=== PATIENT | female | born 1950 | race Caucasian/White ===

== ENCOUNTER 2019-07-05 08:33 | Outpatient (CLI) | payer MEDICARE ==
--- NOTE | 2019-07-05 09:41 | CT ---
EXAM: CT Pulmonary Lung Scan PROVIDED CLINICAL HISTORY: Nicotine dependence COMPARISON: None FINDINGS: There are tiny less than 4 mm scattered nodular densities within the lungs bilaterally majority of wh ich do appear pleural based. A few scattered calcified granuloma are seen within the medial aspect right upper lobe, lingula, and in the left lower lobe. No pleural effusion is seen. Minimal vascular calcifications are seen in the coronary arteries and involving the thoracic aorta. T here is trace pericardial effusion versus pericardial thickening. Lack of intravenous contrast limits sensitivity for evaluation of the mediastinal structures and vasc ulature. However, no definite enlarged lymph nodes are appreciated. The upper abdomen demonstrates a grossly normal nonenhanced CT appearance. Degenerative changes are seen in the spine with a prominent bridging osteophyte anteriorly at T10-11 level. IMPRESSION: Lung RADS category 2-scattered less than 4 mm nodules within the lungs bilaterally majority of which are pleural-based. Continued annual screening with low-dose CT scan thorax in 12 months is recommended.
== END 2019-07-05 08:34 | disposition home or self-care (01) ==
LOC: CT 08:33
PROVIDERS: ATTEND Family Medicine
DX: F17.210 Nicotine dependence, cigarettes, uncomplicated (principal); R91.8 Other nonspecific abnormal finding of lung field
CPT/HCPCS: G0297

== ENCOUNTER 2019-08-18 09:39 | Outpatient (CLI) | payer MEDICARE, OTHER ==
--- NOTE | 2019-08-18 09:52 | RAD ---
2 view chest: [08/18/2019] Comparison:None available HISTORY: Bladder cancer FINDINGS: Heart and mediastinal contours are grossly unremarkable. There is mild diffuse increased li near interstitial density. Lungs are mildly hyperinflated. Question a history of COPD. No pneumothorax or pleural fluid. No focal consolidation or alveolar edema. IMPRESSION: No acute findings.
--- NOTE | 2019-08-18 11:06 | ULT ---
BILATERAL RENAL ULTRASOUND: HISTORY: Malignant neoplasm of bladder. FINDINGS: The right kidney measures 9.5 cm in length and the left kidney measures 9.2 cm in length. No hydronep hrosis or mass is seen on either side. A dilated right renal pelvis is noted. The patient's bladder was removed in 2010 due to cancer. IMPRESSION: No evidence of renal mass. POS: [facility]
== END 2019-08-18 09:40 | disposition home or self-care (01) ==
LOC: BICULT 09:39
PROVIDERS: ATTEND Urology
DX: C67.9 Malignant neoplasm of bladder, unspecified (principal)
CPT/HCPCS: 36415; 71046; 76770; 80053

== ENCOUNTER 2019-10-17 09:49 | Outpatient (CLI) | payer MEDICARE ==
--- NOTE | 2019-10-17 11:06 | RAD ---
2 views right shoulder: 10/17/2019 COMPARISON: None HISTORY: Acute shoulder pain FINDINGS: There is degenerative change involving the right acromioclavicular joint with interspace na rrowing as well as superior and inferior osteophyte formation. There is moderate glenohumeral joint degenerative change. No acute fracture. Glenohumeral relationship is not optimally assessed as no sca pular Y-view or axillary view is provided. IMPRESSION: Degenerative change with no acute fracture noted.
== END 2019-10-17 09:50 | disposition home or self-care (01) ==
LOC: BICRAD 09:49
PROVIDERS: ATTEND Family Medicine
DX: M25.511 Pain in right shoulder (principal); M19.011 Primary osteoarthritis, right shoulder

== ENCOUNTER 2020-08-01 15:45 | Outpatient (CLI) | payer MEDICARE ==
--- NOTE | 2020-08-01 16:36 | CT ---
CT THORAX NONCONTRAST: (LOW DOSE LUNG CANCER SCREENING EXAM) DATE: 08/01/2020 HISTORY: 69-year-old female with history of smoking. Z12.2. Z00.00. COMPARISON: 07/05/2019. FINDINGS: As previously described, there are tiny, noncalcified, multiple pulmonary nodules in the peripheral a spects of the bilateral upper, mid, and lower lung zones, all less than 4 mm in size, mostly 2 mm. Tr achea and bronchi are patent and clear. No pleural effusion or pneumothorax. No thoracic aortic aneur ysm. No cardiomegaly. No significant mediastinal lymphadenopathy. No major interval change. No bullae . IMPRESSION: 1. Lung-RADS 2 (benign appearance, less than 1% chance of malignancy). 2. Recommend continued annual low dose screening CT's. RADHA Serna POS: [facility]
== END 2020-08-01 15:46 | disposition home or self-care (01) ==
LOC: BICCT 15:45
PROVIDERS: ATTEND Family Medicine
DX: Z12.2 Encounter for screening for malignant neoplasm of respiratory organs (principal); F17.210 Nicotine dependence, cigarettes, uncomplicated
CPT/HCPCS: G0297

== ENCOUNTER 2021-02-20 09:18 | Outpatient (CLI) | payer MEDICARE | END 2021-02-20 09:19 | disposition home or self-care (01) | LOC: BICRAD 09:18 | PROVIDERS: ATTEND Family Medicine | DX: M25.511 Pain in right shoulder (principal); M25.512 Pain in left shoulder; M19.011 Primary osteoarthritis, right shoulder; M19.012 Primary osteoarthritis, left shoulder ==

== ENCOUNTER 2022-05-29 15:29 | Outpatient (CLI) | payer MEDICARE | END 2022-05-29 15:30 | disposition home or self-care (01) | LOC: SCSRAD 15:29 | PROVIDERS: ATTEND Family Medicine | DX: R06.02 Shortness of breath (principal) | CPT/HCPCS: 36415; 71046; 80053; 82550; 84443 ==

== ENCOUNTER 2022-07-21 14:14 | Outpatient (CLI) | payer MEDICARE ==
[2022-07-21 16:43] LABS: #Basophils 0.1 10x3/uL (0.0-0.2); #Eosinphils 0.3 10x3/uL (0.0-0.5); #Monocytes 0.8 10x3/uL (0.0-1.1); #Neutrophils 6.1 10x3/uL (1.5-8.4); %Eosinophils 2.7 % (0.0-6.0); %Lymphocytes 31.2 % (18.0-47.0); %Monocytes 7.2 % (0.0-10.0); %Neutrophils 57.6 % (40.0-75.0); Hemoglobin 11.3 g/dL (12.0-15.5); Mean Corpuscular HGB CONC 30.6 g/dL (32.0-36.0); Mean Corpuscular Volume 62.1 fl (81.6-98.3); Mean Platelet Volume 10.3 fl (7.4-10.4); Platelet Count 386 10x3/uL (150-450); RBC Distribution Width 18.5 % (11.5-14.5); Red Blood Cell (RBC) Count 5.94 10x6/uL (3.90-5.03); White Blood Cell (WBC) Count 10.5 10x3/uL (3.5-10.5)
[2022-07-21 17:00] LABS: Anion Gap 14 mmol/L (10-20); BUN (Urea Nitrogen) 17 mg/dL (9.8-20.1); Calc. Creatinine Clearance 0 mL/min (70-130); Calcium 8.9 mg/dL (7.8-10.44); Carbon Dioxide 19 mmol/L (23-31); Chloride 110 mmol/L (98-107); Estimated GFR 58; Glucose 89 mg/dL (80-115); Potassium 4.3 mmol/L (3.5-5.1); Sodium 139 mmol/L (136-145)
[2022-07-21 18:30] LABS: Anisocytosis MODERATE=16-30 cells (100X) (0-5/hpf); Crenated RBC SLIGHT = 1-5 cells (100X) (None Seen); Microcytosis MODERATE=15-30 cells (100X) (0-5/hpf); Ovalocytes MODERATE= 6-15 cells (100X) (0-1/hpf); Poikilocytosis SLIGHT = 6-15 cells (100X) (0-5/hpf)
[2022-07-21 18:31] LABS: Polychromasia SLIGHT = 2-3 cells (100X) (0-2/hpf)
[2022-07-21 18:32] LABS: Hypochromia SLIGHT = 6-15 cells (100X) (0-5/hpf); Large Platelets SLIGHT; Platelet Morphology Comment Appears Adequate; Reflex for Review?? YES
== END 2022-07-21 14:15 | disposition home or self-care (01) ==
LOC: LABBT 14:14
PROVIDERS: ATTEND Orthopaedic Surgery
DX: Z01.818 Encounter for other preprocedural examination (principal); M19.012 Primary osteoarthritis, left shoulder
CPT/HCPCS: 80048; 85025; 85060; 93005; 93010

== ENCOUNTER 2023-01-14 08:59 | Outpatient (CLI) | payer OTHER ==
[2023-01-14] MEDS ORDERED: Iopamidol 370 76% 100 ML VIAL ONE (15:18)
== END 2023-01-14 09:00 | disposition home or self-care (01) ==
LOC: BICCT 08:59
PROVIDERS: ATTEND Urology
DX: C67.9 Malignant neoplasm of bladder, unspecified (principal)
CPT/HCPCS: 74177

== ENCOUNTER 2023-01-14 09:32 | Outpatient (CLI) | payer OTHER | END 2023-01-14 09:33 | disposition home or self-care (01) | LOC: BICMAMMO 09:32 | PROVIDERS: ATTEND Urology | DX: M85.80 Other specified disorders of bone density and structure, unspecified site (principal) | CPT/HCPCS: 77080 ==

== ENCOUNTER 2023-01-15 11:12 | Outpatient (CLI) | payer OTHER | END 2023-01-15 11:13 | disposition home or self-care (01) | LOC: BICRAD 11:12 | PROVIDERS: ATTEND Family Medicine | DX: M54.2 Cervicalgia (principal); M25.511 Pain in right shoulder; M47.812 Spondylosis without myelopathy or radiculopathy, cervical region; M19.011 Primary osteoarthritis, right shoulder | CPT/HCPCS: 72040 ==

== ENCOUNTER 2023-05-14 08:33 | Outpatient (CLI) | payer OTHER | END 2023-05-14 08:34 | disposition home or self-care (01) | LOC: RAD 08:33 | PROVIDERS: ATTEND Internal Medicine Critical Care Medicine | DX: R06.00 Dyspnea, unspecified (principal) | CPT/HCPCS: 71046 ==

== ENCOUNTER 2023-08-25 12:54 | Outpatient (CLI) | payer OTHER | END 2023-08-25 12:55 | disposition home or self-care (01) | LOC: BICRAD 12:54 | PROVIDERS: ATTEND Nurse Practitioner Family | DX: R05.9 Cough, unspecified (principal); R09.89 Other specified symptoms and signs involving the circulatory and respiratory systems | CPT/HCPCS: 71046 ==

== ENCOUNTER 2023-10-16 09:29 | Outpatient (CLI) | payer OTHER | END 2023-10-16 09:30 | disposition home or self-care (01) | LOC: BICRAD 09:29 | PROVIDERS: ATTEND Family Medicine | DX: J40 Bronchitis, not specified as acute or chronic (principal) | CPT/HCPCS: 71046 ==

== ENCOUNTER 2023-11-12 13:05 | Outpatient (CLI) | payer OTHER | END 2023-11-12 13:06 | disposition home or self-care (01) | LOC: BICRAD 13:05 | PROVIDERS: ATTEND Family Medicine | DX: R06.89 Other abnormalities of breathing (principal); R05.9 Cough, unspecified | CPT/HCPCS: 71046; 87635 ==

== ENCOUNTER 2024-08-15 10:13 | Outpatient (CLI) | payer OTHER | END 2024-08-15 10:14 | disposition home or self-care (01) | LOC: SCSMRI 10:13 | PROVIDERS: ATTEND Specialist | DX: M87.051 Idiopathic aseptic necrosis of right femur (principal); M19.09 Primary osteoarthritis, other specified site; M89.9 Disorder of bone, unspecified ==

== ENCOUNTER 2025-04-27 09:47 | Outpatient (CLI) | payer OTHER | END 2025-04-27 09:48 | disposition home or self-care (01) | LOC: BICRAD 09:47 | PROVIDERS: ATTEND Family Medicine | DX: M47.22 Other spondylosis with radiculopathy, cervical region (principal) | CPT/HCPCS: 72040 ==